=== PATIENT | female | born 1975 | race Caucasian/White ===

== ENCOUNTER 2022-01-25 07:12 | Inpatient (IN) ==
--- NOTE | 2022-01-05 10:15 | PAT Medication Instructions ---
Medication Instructions Date of Service January 05, 2022 Home Medications Medication Instructions Recorded metformin 500 mg tablet 1,000 mg PO QPM #60 tabs 04/09/21 lorazepam 0.5 mg tablet 0.5 mg PO DAILY PRN anxiety #20 12/07/21 tabs Synthroid 300 mcg tablet 300 mcg PO .COMPLEX 90 days #72 01/04/22 (levothyroxine) tabs ferrous sulfate 325 mg (65 mg iron) tablet (Feosol) 65 mg PO QDD tamoxifen 20 mg tablet 20 mg PO QDD calcium carbonate 600 mg-vitamin D3 5 mcg (200 unit) tablet 1 tab PO QDD metformin 500 mg tablet 1,000 mg PO QPM lorazepam 0.5 mg tablet 0.5 mg PO DAILY PRN anxiety Synthroid 300 mcg tablet (levothyroxine) 300 mcg PO .COMPLEX hydrochlorothiazide 25 mg tablet 25 mg PO QDL lisinopril 10 mg tablet 10 mg PO QDL mecobalamin (vitamin B12) 1,000 mcg chewable tablet 1,000 mcg PO QPM phentermine 15 mg capsule 15 mg PO QDL Continue as directed Synthroid 300 mcg tablet (levothyroxine) 300 mcg PO .COMPLEX ASK your prescriber and surgeon tamoxifen 20 mg tablet 20 mg PO QDD DO NOT take the morning of surgery hydrochlorothiazide 25 mg tablet 25 mg PO QDL lisinopril 10 mg tablet 10 mg PO QDL Take morning of surgery With a small sip of water, OTHERWISE NOTHING TO EAT OR DRINK AFTER MIDNIGHT: lorazepam 0.5 mg tablet 0.5 mg PO DAILY PRN anxiety (if needed) Take evening before surgery ferrous sulfate 325 mg (65 mg iron) tablet (Feosol) 65 mg PO QDD calcium carbonate 600 mg-vitamin D3 5 mcg (200 unit) tablet 1 tab PO QDD metformin 500 mg tablet 1,000 mg PO QPM lorazepam 0.5 mg tablet 0.5 mg PO DAILY PRN anxiety (if needed) mecobalamin (vitamin B12) 1,000 mcg chewable tablet 1,000 mcg PO QPM STOP 5 days before surgery phentermine 15 mg capsule 15 mg PO QDL Other Notes If you have any questions please call us at [phone] or [phone] or [phone] or [phone]
--- NOTE | 2022-01-12 10:50 | Anesthesiology Consultation ---
Date of Service January 12, 2022 Assessment & Plan (1) Encounter for pre-operative examination: - COVID screening: Per assessment on 01/12: No known COVID-19 positive contacts or current COVID-19 related symptoms. Travel screen negative. Patient vaccinated. At surgeon discretion if preop Covid testing being done. - Check test, BSG AM DOS - LUE limb restriction: s/p mastectomy - Hx motion sickness: Per pt, no personal hx of PONV but has had scope patch used in the past/hx of significant motion sickness- pt would like scope patch again for upcoming surgery. Scope patch ordered for AM DOS. - Hx difficult intubation: Hysteroscopy, D&C (07/13/19): Unable to visualize VC with glidescope unsuccessful > LMA igel 4 placed. Per post-op anesthesia progress note, "I called the patient to address her concerns during her D&C. The patient stated having a mild sore throat post- operatively on the day of the procedure. The patient stated that on post-op day 1, the patient had more of a sore throat and swollen glands around her neck. She stated having a low grade fever, and she noted bruising along her R mandible. She stated that the bruising on the mandible progressed to the side of her neck. She stated having no issues with her breathing or swallowing, and she stated her sore throat improved, and she was not febrile anymore. I spoke to her and told her that we attempted to intubate her but instead used a LMA. The sore throat and bruising could have been attributed to the induction/intubation process. I told her that she needed to contact an anesthesia provider if her symptoms worsened or did not subside. The patient was very understanding and appreciative of my phone call." Patient very anxious about upcoming surgery d/t issues with intubation/bruising in the past - Patient acceptable risk for surgery pending preop labs (being done at [facility]). Chart Review Chart Review: Patient seen in Pre Admission Testing Teaching & Discussion Pre-Anesthesia Teaching/Discussion Notes: Instructed NPO after midnight before surgery,except medications with 15 cc of water. Medication instructions provided according to the PAT guidelines. History Surgery Operation Date: 01/25/22 09:35 Proposed Procedures p Robotic Cystoscopy, Laparoscopic Removal of The Uterus and Both Fallopian Tubes, Removal of Both Ovaries - Eden Ruiz MD Height/Weight Height: 5 ft 3 in Weight: 130.6 kg Allergies Allergy/AdvReac Type Severity Reaction Status Date / Time clavulanic acid Allergy Mild hives Verified 01/12/22 08:54 [From Augmentin] Medications Home Medications Medication Instructions Recorded Confirmed Last Taken ferrous sulfate 325 mg (65 mg 65 mg PO QDD 05/07/19 01/12/22 07/12/19 20:30 iron) tablet (Feosol) tamoxifen 20 mg tablet 20 mg PO QDD 09/07/19 01/12/22 Unknown calcium carbonate 600 mg-vitamin 1 tab PO QDD 03/09/21 01/12/22 Unknown D3 5 mcg (200 unit) tablet metformin 500 mg tablet 1,000 mg PO QPM #60 tabs 04/09/21 01/12/22 Unknown lorazepam 0.5 mg tablet 0.5 mg PO DAILY PRN anxiety #20 12/07/21 01/12/22 Unknown tabs Synthroid 300 mcg tablet 300 mcg PO .COMPLEX 90 days #72 01/04/22 01/12/22 Unknown (levothyroxine) tabs hydrochlorothiazide 25 mg tablet 25 mg PO QDL 01/04/22 01/12/22 Unknown lisinopril 10 mg tablet 10 mg PO QDL 01/04/22 01/12/22 Unknown mecobalamin (vitamin B12) 1,000 1,000 mcg PO QPM 01/04/22 01/12/22 Unknown mcg chewable tablet phentermine 15 mg capsule 15 mg PO QDL 01/04/22 01/12/22 Unknown Past Medical History Medical History Anxiety situational Cervical dysplasia Hypertension Hypothyroidism Lobular carcinoma in situ (LCIS) of left breast Dx 2018 s/p surgery/xrt Morbid obesity Prediabetes On Metformin (per pt, Metformin more so for weight loss) Exercise / Class Metabolic Activity II 4-5 Yardwork/Stairs/Walk up hill (one FS (no CP, no SOB)) Past Family History Family History Mother Hypertension Father Diabetes Cancer Son No problems noted. Grandmother (Paternal) Breast cancer age 84 Grandfather (Paternal) , age 80's Prostate cancer Lung disease Grandfather Myocardial infarction Other Nephrolithiasis No family history of adverse response to anesthesia Denies family history of Ovarian cancer Colorectal cancer Past Surgical History Surgical History Difficult airway for intubation Hysteroscopy, D&C (07/13/19): Unable to visualize VC with glidescope unsuccessful > LMA igel 4 placed. Per post-op anesthesia progress note, "I called the patient to address her concerns during her D&C. The patient stated having a mild sore throat post- operatively on the day of the procedure. The patient stated that on post-op day 1, the patient had more of a sore throat and swollen glands around her neck. She stated having a low grade fever, and she noted bruising along her R mandible. She stated that the bruising on the mandible progressed to the side of her neck. She stated having no issues with her breathing or swallowing, and she stated her sore throat improved, and she was not febrile anymore. I spoke to her and told her that we attempted to intubate her but instead used a LMA. The sore throat and bruising could have been attributed to the induction/intubation process. I told her that she needed to contact an anesthesia provider if her symptoms worsened or did not subside. The patient was very understanding and appreciative of my phone call." History of breast biopsy 2019 (left)- malignant History of partial mastectomy of left breast Hx of dilation and curettage S/P LEEP 2005 S/P tonsillectomy age Past Anesthesia History Difficult Airway (see PMHX) and No Family Hx of Anesthesia Complications History of PONV No Hx of PONV and Hx of Motion Sickness Social History Smoking Status: Never smoker Do You Dip or Chew Tobacco: No Hx Alcohol Use: No Hx Substance Use: No substance use type: does not use Review of Systems Patient denies chest pain, shortness of breath, dyspnea on exertion, fever, chills, cough, wheezing, palpitations. Physical Exam Vital Signs VITALS BP 138/86 P 105 TEMP 98.3 SP02 98%RA RESP 18 PHYSICAL Full cervical extension range of motion. Full TMJ range of motion. TMD 3 finger breaths Mallampati Score 4 Dentition: missing molars, + crown Lungs: clear throughout to auscultation Cardiac: regular rate and rhythm, no murmurs noted Spine: normal Extremities: no edema Lab Results Anesthesia Preop Results Results Anesthesia Widget: TSH 7.64 mIU/L H 12/31/21 Blood Type O Positive 01/12/22 Antibody Screen NEGATIVE 01/12/22 Testing Laboratory Results 12/31/21 TSH 7.64 11/09/21 FREE T4 1.5 Electrocardiogram Date: 01/12/22 NSR at 96bpm. Prolonged QT. No significant change compared to 02/15/2019 per backend python developer comparison. COVID-19 Risk Screen Screening Information COVID-19 Screen Date: 01/12/22 Exposure 21 Days Family/Household +COVID Last 21 Days: No Exposure 10 Days Any COVID Exposure Last 10 Days: No Symptoms Last 10 Days Experienced COVID Sx Last 10 Days: No + COVID 0-90 Days COVID + in Last 0-90 Days: No
[~2022-01-25 07:12] MED LIST: LACTATED RINGER'S 1,000 ML IV SCH; LR 15ML/HR IV SCH; MIDAZOLAM HCL 1 MG/ML 2ML VIAL ONE; fentaNYL citrate 100 MCG/2 ML VIAL ONE
[2022-01-25] MEDS ORDERED: KETOROLAC 30 MG/ML VIAL ONE (07:53)
[2022-01-25] MEDS ORDERED: GLYCOPYRROLATE 0.2 MG/ML VIAL ONE (07:53)
[2022-01-25] MEDS ORDERED: LARYING-O-JET KIT (LTA) ONE (07:53)
[2022-01-25] MEDS ORDERED: ONDANSETRON INJ 2 MG/ML 2 ML VIAL ONE (07:53)
[2022-01-25] MEDS ORDERED: SUCCINYLCHOLINE CHLORIDE 20 MG/ML 10 ML VIAL IV ONE (07:53)
[2022-01-25] MEDS ORDERED: PROPOFOL IV EMULSION 10 MG/ML 20 ML VIAL IV ONE (07:53)
[2022-01-25] MEDS ORDERED: LIDOCAINE 2% MPF LOCAL 5 ML VIAL INFIL ONE (07:53)
[2022-01-25] MEDS ORDERED: ROCURONIUM BROMIDE 10 MG/ML 5 ML VIAL IV ONE ×6 (07:53→11:31)
[2022-01-25] MEDS ORDERED: NEOSTIGMINE METHYLSULFATE 1 MG/ML 10ML VIAL ONE (07:53)
[2022-01-25] MEDS ORDERED: DEXAMETHASONE SOD INJ 4 MG/ML VIAL ONE (07:53)
[2022-01-25] MEDS ORDERED: SCOPOLAMINE 1 MG TDSY TD ONE (08:06)
[2022-01-25] MEDS ORDERED: fentaNYL citrate 100 MCG/2 ML VIAL IV PRN (08:10)
[2022-01-25] MEDS ORDERED: PHENYLEPHRINE 100MCG/ML 5ML SYR IV PRN (08:10)
[2022-01-25] MEDS ORDERED: ATROPINE SULFATE 0.1 MG/ML 10ML SYR IV PRN (08:10)
[2022-01-25] MEDS ORDERED: MEPERIDINE HCL 25 MG/ML CARP/VIAL IV PRN (08:10)
[2022-01-25] MEDS ORDERED: ONDANSETRON INJ 2 MG/ML 2 ML VIAL IV PRN ×2 (08:10→14:32)
[2022-01-25] MEDS ORDERED: LABETALOL HCL IV 5 MG/ML 20ML IV PRN (08:10)
[2022-01-25] MEDS ORDERED: ePHEDrine sulfate 50 MG/ML AMP IV PRN (08:10)
[2022-01-25] MEDS ORDERED: HYDROmorphone INJ 1 MG/ML SYRINGE IV PRN (08:10)
[2022-01-25] MEDS ORDERED: SUGAMMADEX SODIUM 200 MG/2 ML VIAL IV ONE (08:39)
--- NOTE | 2022-01-25 08:40 | History & Physical Bridge Note ---
Date of Service January 25, 2022 History & Physical Bridge Note I have examined the patient, reviewed the History & Physical and in the interval since the performance of the History & Physical I have noted the following changes of clinical significance: no changes noted
[2022-01-25] MEDS ORDERED: fentaNYL citrate 100 MCG/2 ML VIAL ONE (09:31)
[2022-01-25] MEDS ORDERED: ePHEDrine sulfate 50 MG/ML SYR ONE (10:10)
[2022-01-25] MEDS ORDERED: SCOPOLAMINE 1 MG TDSY TD SCH (11:30)
[2022-01-25 12:43] LABS: Hematocrit (blood only) 31.4 % (34.1-44.9); Hemoglobin 10.8 g/dl (12.0-16.0)
[2022-01-25] MEDS ORDERED: ARISTA ABSORBABLE HEMOSTAT 3GM TOP ONE (12:49)
[2022-01-25] MEDS ORDERED: HYDROmorphone INJ 2 MG/ML SYR/VIAL ONE (12:58)
[2022-01-25] MEDS ORDERED: METHYLENE BLUE 0.5% 10 ML VIAL ONE (13:21)
--- NOTE | 2022-01-25 13:45 | Operative Report ---
PG Post Operative Report Pre & Post Diagnosis Operation Date: 01/25/22 08:50 Pre-Op Diagnosis: Uterine Fibroid, ER positive breast cancer, morbid obesity Post-Op Diagnosis: Uterine Fibroid, ER positive breast cancer, morbid obesity, severe endometriosis, adhesions I identified the patient and participated in the time-out.: Yes Procedure Operation Date: 01/25/22 08:50 Actual Procedures Robotic-Assisted Converted to Open Supracervical Hysterectomy, Lysis of Adhesions, Left salpingectomy, Oversew of mesenteric abrasion (Dr. Al), Cystoscopy(Not Applicable) - Eden Ruiz MD Surgeon Eden Ruiz MD Welder Fitter Arc Kaitlin Estimated Blood Loss 400 Findings Consistent with Post-Op Diagnosis Specimens Uterus with large fibroid, Left fallopian tube. Drains Mercedes Anesthesia Type General Complications Right forearm methylene blue extravasation Disposition Accompanied Patient To Recovery: Yes Disposition: Recovery Room Description of Procedure The patient was placed on the table in lithotomy position and prepped/draped in standard sterile fashion. A hard time out was taken prior to proceeding. The mercedes was placed without complication. Attempt was made to place a V-Care manipulator, however due to an anterior displacement of the cervix and a long/narrow vaginal canal, this was difficult. The attempt was quickly abandoned in favor of using a sponge stick until dissection and mobilization of the uterus could make later placement of the V-Care easier, before the portion of the procedure where a colpotomy cup would be needed. Open entry was made at the umbilicus to place a GelPoint Mini. A 3-cm incision superior to the umbilicus was created and a hemostat was used to bluntly dissect to the fascia which was sharply entered using a Metzenbaum scissor, then the opening was explored by the surgeon's fingers. Exploration revealed significant adherent omental tissue creating a "pocket" beneath the dissected area which was not easy to dissect through. Therefore, the optical trocar and 5mm camera were used to sharply pass through the omental adhesions while watching the tip pass into the abdominal cavity. This opening was then used to place the GelPoint. The abdomen was insufflated, and the patient was placed in Trendelenburg. While in steepest Trendelenburg, the patient began to slide cephalad, despite the use of bariatric pads on the bed specifically to prevent this. She was returned to flat position, and several assistants were obtained to reposition her back to the appropriate location on the bed, to check all securing bands, and to loosen and re-attach all patient securing belts, to ensure she was not pinched or stressed in any way by this repositioning. She was then slowly placed back into Trendelenberg until she showed signs of beginning to slide at 28 degrees slope, and was then returned to 26 degrees where she stayed stable. Belts and padding were again re-checked for patient comfort. Yamilet Abdullahi CRNA was asked to roxana the patient's position and to notify me if she began to "creep" during the case, but from that point forward the patient remained well positioned. Under direct visualization, right and left lower quadrant ports were placed. The camera was moved to the LLQ port to view the umbilical entry and ensure it was clear and free of injury, which it was. Survey of the pelvic organs revealed a grossly enlarged fibroid uterus, as expected. The upper abdomen was normal other than significant adiposity, but the abdominal and pelvic sidewalls showed evidence of endometriotic implants (photographs taken for patient chart). The ovaries and tubes were adherent beneath the uterus, with adhesions to the sigmoid colon and mesentery as well. The robot was docked and surgery then proceeded. Ureters were sought but unable to be identified at this point due to fixation of the bowels to the posterior aspect of the abdomino-pelvic cavity by endometriosis. The adhesions holding the sigmoid colon over the left IP ligament were released and the bowel gently mobilized, but the sigmoid was unable to be moved away from the ovary at all. In fact, gentle attempts to loosen the ovary from the sidewall resulted in spillage of chocolate syrup-type material c/w endometriosis pockets between the ovary and bowel. This was suctioned and irrigated. Dr. Quiroz was asked to visit the OR and render his opinion whether there was going to be ability to create a plane between the left ovary and the sigmoid, as the two structures appeared almost melted together, and I questioned whether the endometriosis surrounding that ovary may actually have invaded the bowel wall, thus requiring resection of bowel were I to attempt to remove the ovary. He sat to the console and did briefly explore the area where the ovary and sigmoid met. His opinion at that time was that resection might be possible, but we agreed it should not be attempted until after the uterus was removed, as a secondary procedure, to allow control of bleeding or bowel issues that may well occur during the attempt. He then left the OR. Cautery was used to dissect the left fallopian tube free from its fimbriated end to the cornua. This tube was retrieved via an personal care assistant port. The left round ligament was ligated and divided, allowing entry to the retroperitoneal space, which then allowed access to ligate and divide the utero-ovarian, and to begin to create the bladder flap by opening the anterior leaflet of the broad ligament distally. To the Right side, the round ligament was severely distorted by the large anterior fibroid, and this was ligated and divided first to release the majority of the fixation of the uterus. Once this was opened, it was possible to begin t he bladder flap from this side as well. Unfortunately the R ovary and tube were both tightly trapped beneath the lateral aspect of the uterus and largest fibroid, and surrounded by endometriotic material as well as grossly enlarged blood vessels c/w recruitment by the large fibroid, and resting directly atop a loop of bowel as well. The fallopian tube was ligated at the cornu and cut free of the uterus at that point, but remained firmly adherent to the ovary, and its fimbriated end was buried beneath the posterior aspect of the uterus. Dissection proceeded very slowly with as much sharp/cold approach as possible, and with suction-irrigation provided via the personal care assistant port from above, until the utero-ovarian could safely be ligated and divided. The dissection was then carried distal towards the cervix as far as safely possible. At that point, attempt was made to place the V-Care from below, by Dr. Madrigal who was then available and assisting. She was unable to place it. During a ttempts to manipulate the uterus from above and bring the cervix down into her view, bleeding was noted to begin briskly from the left side very low, near where the anticipated site of colpotomy would be, and this was believed to be the uterine artery. Unfortunately, attempts to stop the bleeding were very limited, because without a colpotomy cup to elevate the area, it was not safe to utilize cautery in that area. I personally re-scrubbed and then quickly placed a V-Care successfully, then sat back to the console to attempt to cauterize the vessel. Despite several attempts, the bleeding that had arisen from the left side of the cervico-vaginal junction was not easily controlled. A decision was made that conversion to open procedure was in the best interests of the patient. The robot was undocked, the trocars removed, and the patient was positioned flat. Of note I asked for a stat H&H, which I was later informed had required an EJ access to be placed per anesthesia, due to difficulty obtaining any venous access on this patient. A Pfannensteil incision was made and carried to the fascia sharply. The fascia was incised and elevated, dissected bluntly off the rectus muscles, and the rectus were divided bluntly in the midline. Entry to the peritoneum was made bluntly. A self-retaining retractor was placed, and the uterus was grasped and elevated with a Andreas clamp. Because the uterus was large enough to essentially block the view of the pedicles below, a decision was made to begin with a fundectomy. However, it soon became evident that the simpler approach would be a myomectomy of the dominant anterior fibroid, since the incision could be made right on top and the fibroid shelled-out. Once the fibroid was removed, the remaining uterus was re-grasped and manipulated to allow placement of Zeppelin clamps on each uterine pedicle. These were suture-ligated. An additional bleeding vessel most consistent with a branch of the uterine was identified and suture-ligated on the left. With hemostasis achieved, Bovie was used to amputate the uterus at the level of the mid-cervix. The stump was then oversewn with [id number] vicryl pop-offs. Gentle exploration of the pelvis showed a shallow laceration to the mesentery alongside the sigmoid. It is unclear when this occurred, but based on its position and size, I suspect the tip of the superior blade of the self-retaining retractor was the cause. Dr. Al (who was then in tube conversion technician for general surgery) entered the OR at my request and examined this, and placed a few interrupted silk sutures over the area, as well as a suture on the sigmoid itself where the serosa was abraded right alongside this. We also asked him to examine both ovaries which remained in-situ and viable, but densely adherent to both the bowel and the pelvic sidewalls. Drs. Al, Kaitlin and myself considered the likelihood of bowel injury and possible ostomy, as well as the need to remain on Tamoxifen and the impact of this on her overall health (side effects, breast cancer, endometriosis) as we decided whether to attempt bilateral oophorectomy with R salpingectomy. It was felt that the likelihood of bowel injury and possible bowel resection was very high if we attempted to remove any of these structures, and leaving the ovaries and remaining tube in-situ was thus what I decided. Irrigation was performed, good hemostasis was seen with no active bleeding. Min was applied to the cervical stump and surrounding structures, and gentle pressure held with a lap sponge for 1 minute. Excellent hemostasis was apparent on a final inspection of the pelvis. A sponge count was instituted, and closure of the abdomen proceeded. Rectus were reapproximated with interrupted vicryl, the fascia was closed with looped 0-PDS, subcutaneous tissue was irrigated and then the space was closed with chromic, and the skin was closed with margie. A dressing was applied in sterile fashion. UR-6 vicryl was used at the umbilical fascia and monocryl was used at all laparoscopic sites. Cystoscopy was performed after administration of methylene blue dye, and showed an intact bladder dome free of injury and a good strong jet of blue urine from both ureteral orifices. The bladder was then drained. A fresh mercedes was placed. The patient's father was notified by phone of the above events from PACU, where the patient was transferred in good condition. On transfer to PACU, it was seen that the patient's R forearm was dotted with patches of blue color c/w methylene blue. This only occurred distal to the blood pressure cuff, which was on the same arm as her IV due to a restricted L limb after breast cancer with node dissection on the left side. The IV itself had not infiltrated and there was no "pool" of methylene blue to remove; rather, the dye seemed to have extravasated in patches from various veins whenever the blood pressure cuff had gone off. The blood pressure cuff was removed, the IV was removed, and the limb was elevated and warm compresses applied at my direction as this agent is a vesicant. Yamilet Abdullahi and Rikki Quijano are both aware and observing this with me; I remain in PACU as the patient is recovering, to type this note, and to observe her as this extravasation and her obstructive sleep apnea remain concerns. Approximately 20min after the above events, I am told her E-J access appears to have begun failing as well, and IV team will now be called to obtain new IV access. The patient will remain overnight for care in the hospital and was made aware of all of the above in PACU, and will have all questions answered on an ongoing basis during her hospitalization. I attest to the content of the Intraoperative Record and any orders documented therein. Any exceptions are noted below.
[2022-01-25] MEDS ORDERED: HYDROmorphone PCA 30 MG/30 ML IV PRN (14:32)
[2022-01-25] MEDS ORDERED: bisacodyL 10 MG SUPP PR PRN (14:32)
[2022-01-25] MEDS ORDERED: MAGNESIUM HYDROXIDE SUSP 30 ML UDC PO PRN (14:32)
[2022-01-25] MEDS ORDERED: NALOXONE HCL 0.4 MG/1 ML VIAL/CARP IV PRN (14:32)
[2022-01-25] MEDS ORDERED: METOPROLOL TARTRATE 1 MG/ML VIAL IV STA ×2 (14:37→17:28)
[2022-01-25] MEDS ORDERED: SODIUM CHLORIDE 0.9% 1000ML 1,000 ML IV SCH (14:45)
--- NOTE | 2022-01-25 15:27 | Anesthesiology Progress Note ---
Date of Service January 25, 2022 Anesthesia Post Procedure Vital Signs Vital Signs: Temp Pulse Pulse Pulse Resp BP BP 01/25/22 15:20 67 18 120/61 01/25/22 15:10 88 14 107/67 01/25/22 15:00 36.2 C L 104 H 14 128/64 01/25/22 14:20 126 H 22 106/83 01/25/22 14:50 92 H 22 117/67 01/25/22 14:40 125 H 21 149/93 H 01/25/22 14:44 121 H 149/93 H 01/25/22 14:30 116 H 20 131/102 H 01/25/22 14:10 131 H 26 H 111/84 01/25/22 14:00 121 H 22 104/71 01/25/22 13:50 36.1 C L 121 H 34 H 104/84 01/25/22 07:32 36.6 C 100 H 20 BP Pulse Ox O2 Del Method O2 Flow Rate 01/25/22 15:20 97 Nasal Cannula 2 01/25/22 15:10 99 Nasal Cannula 3 01/25/22 15:00 100 Nasal Cannula 3 01/25/22 14:20 98 Oxymask 5 01/25/22 14:50 98 Oxymask 5 01/25/22 14:40 98 Oxymask 5 01/25/22 14:44 01/25/22 14:30 98 Oxymask 5 01/25/22 14:10 99 Oxymask 5 01/25/22 14:00 100 Oxymask 5 01/25/22 13:50 100 Oxymask 5 01/25/22 07:32 158/97 H 99 Room Air Pain Intensity Abdomen: Pain Intensity: 3 Transfer of Care Handoff Completed per policy Notes Mental Status: alert / awake / arousable Patient Amnestic to Procedure: Yes Nausea / Vomiting: adequately controlled Pain: adequately controlled Airway Patency, RR, SpO2: stable & adequate BP & HR: stable & adequate Hydration State: stable & adequate Anesthetic Complications: no major complications apparent and Pt Satisfied with anesthetic care Notes: The patient is awake and her vital signs are stable. She was converted to an open procedure from a robotic procedure. A right EJ peripheral IV was placed by Dr. Coffey using ultrasound to obtain an H/H as well as type and screen the patient in the OR. Her hemoglobin was found to be 10.8. Upon arrival to PACU, her right forearm skin was noted to have multiple blue splotches. There was no swelling around the spots or around the IV site. Some residual methylene blue was noted in the IV tubing. The blood pressure cuff was above the IV on the right arm due to the patient's history of left breast cancer. The blue splotches likely occurred when the blood pressure cuff went up during infusion of the methylene blue. The IV did not appear to be infiltrated, however it was removed out of caution. A warm pack was placed on the arm and it was elevated. The right EJ IV became infiltrated in the PACU and was removed. A new right upper extremity IV was placed in the PACU. The patient will go to the floor for overnight monitoring.
[2022-01-25] MEDS: NITROGLYCERIN 2% OINTMENT 30GM TUBE EXT SCH (17:17)
[2022-01-25] MEDS ORDERED: METOPROLOL TARTRATE 1 MG/ML VIAL IV ONE (17:27)
[2022-01-25] MEDS: CHECK SCOPOLAMINE PATCH PLACEMENT SCH (18:03)
--- NOTE | 2022-01-25 20:32 | Communication Note ---
Date of Service: January 25, 2022 Time >30min spent in room with patient to assess comfort, assess RUE (blue is slowly fading to supervisor wet end color and no longer c/o burning sensation at the skin), discuss surgical case, and answer any questions again now that Lorraine is more awake. During this visit, PRINT SHOP ASSISTANT pump was set up by RN x2 while I was in the room, and patient was given the first dose using her PRINT SHOP ASSISTANT button to ensure the pump was working correctly. LLE has the BP cuff on, RLE has the SCD on and working. Patient wearing nasal cannula with CO2 detector for PRINT SHOP ASSISTANT pump. She is comfo rtable and sleepy but able to remain awake and hold a conversation, then drifts to sleep when not chatting. Her O2 saturation is holding stable in the mid 90s on NC02 2L. Plan discussed to remain inpatient tonight with mercedes, PRINT SHOP ASSISTANT, and to just rest. Tomorrow AM we will do a trial of void, regular diet, begin to ambulate. She wants to go home tomorrow if possible. Discussed while this is possible, would keep in mind she may need to remain a second night for additional pain management and to ensure she meets milestones with ability to eat/drink, void/pass gas, and that she's able to get around her home safely. Of note, the patient's Aunt last week and a is being held tomorrow which is also affecting her father (who is her support person, and who is caring for Lorraine's child at home tonight) so she is feeling not just pain after surgery but also stress on behalf of her father and family, as well as grief. Empathy provided for what has been a very difficult day and what will be a longer and harder recovery than she was hoping.
[2022-01-25] MEDS: LACTATED RINGER'S 1,000 ML IV SCH (21:20)
--- NOTE | 2022-01-26 00:08 | Anesthesiology Progress Note ---
Date of Service January 26, 2022 Assessment & Plan (1) Abnormal uterine bleeding (AUB): Plan Agree with holding off on topical nitroglycerin at this time given systolics in the low 100s. Can consider in the a.m. if needed. Admission and Anticipated Discharge Date Admission Date: January 25, 2022 Subjective Asked by nursing to evaluate need for topical nitroglycerin given systolic blood pressures in the low 100s. Patient's denies pain in her right arm (site of methylene blue extravasation) comfortable with postop pain control. Physical Exam Vital Signs: Last Vital Signs Temp 36.4 C L 01/25/22 21:01 Pulse 107 H 01/25/22 21:01 Resp 16 01/25/22 21:01 BP 103/59 L 01/25/22 21:01 Pulse Ox 100 01/25/22 21: O2 Del Method 01/25/22 21: O2 Flow Rate 2 01/25/22 18:40 Physical Exam: Right upper extremity with multiple sites of methylene blue noted. No apparent ischemia observed. No significant tenderness to deep palpation. 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 Stop: 02/08/22 14:31 Last Admin: 01/25/22 19:39 Dose: 30 mg Documented By: ANGEL Co-signed By: SMRachelle Lactated Ringer's (Lr) 1,000 mls @ 15 mls/hr IV .Q24H [facility] Stop: 01/26/22 05:59 Last Infusion: 01/25/22 08:54 Dose: 0 mls/hr Documented By: Admin: 01/25/22 07:50 Dose: 15 mls/hr Documented By: TDM Lactated Ringer's (Lr) 1,000 mls @ 125 mls/hr IV .Q8H [facility] Stop: 02/24/22 14:44 Last Admin: 01/25/22 21:20 Dose: 125 mls/hr Documented By: PRATEEK Miscellaneous (Check Scopolamine Patch Placement) 1 each N/A QS MARITZA Stop: 02/24/22 15:59 Last Admin: 01/25/22 18:03 Dose: 1 each Documented By: ROOSEVELT Nitroglycerin (Nitroglycerin 2% Ointment 30gm Tube) 2 inch EXT Q6H [facility] Stop: 02/24/22 16:59 Last Admin: 01/25/22 17:17 Dose: 2 inch Documented By: KIM Scopolamine (Scopolamine 1 Mg Tdsy) 1 mg TD Q72H [facility] Stop: 01/27/22 11:29 Last Admin: 01/25/22 08:12 Dose: 1 mg Documented By: RADHA
[2022-01-26] MEDS: NITROGLYCERIN 2% OINTMENT 30GM TUBE EXT SCH ×2 (00:12→06:26)
[2022-01-26] MEDS: LACTATED RINGER'S 1,000 ML IV SCH (05:20)
[2022-01-26] MEDS: LEVOTHYROXINE SODIUM 150 MCG TABLET PO SCH (06:17)
[2022-01-26] MEDS ORDERED: HYDROmorphone INJ 0.5 MG/0.5 ML SYR IV PRN (07:18)
[2022-01-26 07:56] LABS: BUN Creatinine Ratio 22.8 (10-20); Calcium 7.5 mg/dl (8.5-10.1); Creatinine Clr Calc Pharmacy 93.9 ml/min; Est GFR (African American) 78.4 ml/min; Est GFR (Non-African American) 67.6 ml/min; Potassium 4.3 mmol/L (3.5-5.1)
[2022-01-26] MEDS: CHECK SCOPOLAMINE PATCH PLACEMENT SCH ×3 (08:00→17:35)
--- NOTE | 2022-01-26 08:00 | Gynecologic Progress Note ---
Date of Service January 26, 2022 Assessment & Plan (1) Fibroids: Plan: S/P MARITZA, converted to open procedure yesterday. Goals of recovery today include ambulation, trial of void, regular diet, pain control with oral medication nikki. If these goals are met, patient hoping to go home today. May require another overnight and she is aware this depends on how well today goes. Moving forward, no fibroids remain in the patient (pathology pending but presume based on intraop appearance). Cervix remains, she is aware, and pap smears remain relevant for her in the future. No menses are expected to occur, which was also explained. (2) Morbid obesity: Plan: Pre-existing risk factor for surgical morbidity and for healing complications, as well as for estrogen-related cancers. Continues to be a risk factor for DVT/PE, and patient will mobilize today, as well as having been counseled about the importance of movement and deep breathing to prevent clots and PNA as she recovers. Weight management efforts have been ongoing for Lorraine and continue to be encouraged. (3) Uterine enlargement: Plan: S/P MARITZA (4) Abnormal uterine bleeding (AUB): Plan: S/P MARITZA (5) Hypothyroidism: Plan: Continue home thyroid replacement while inpatient (6) Anxiety: Plan: Can resume prn ativan today if needed; BP last night was a bit low during use of nitroglycerin topical and breathing obstruction is an ongoing concern, as I am certain the patient has RADHA given her breathing pattern while waking from anesthesia. Now that she is more alert, likely safe to offer this PRN. Did also discuss the RADHA with the patient and recommended she should likely be on CPAP at home, which she says she is not currently. (7) Hypertension: Plan: Continue home medications. As above, see discussion of CPAP for RADHA which may also play a role here. (8) Malignant neoplasm of central portion of left breast in female, estrogen receptor positive: Plan: Continue Tamoxifen given retention of ovaries. Unfortunately this is also likely feeding the endometriosis we now know she has, which is the reason why her ovaries were unresectable yesterday. Fortunately Lorraine has had no complaint of pain with this, and we discussed yesterday that this new diagnosis typically presents as menstrual pain and adhesive disease. (9) Endometriosis determined by laparoscopy: Plan: As above, severe with obliteration of the cul-de-sac and essentially fusion of the ovaries and R tube to the pelvic sidewall and bowels. Patient has been using Tamoxifen for risk reduction given her history of hormone-positive breast cancer, which means balancing her choices to use the Tamoxifen against the knowledge that it may be worsening this disease. She has had few to no complaints related to the endo, however, so it is likely best to continue the tamoxifen until menopause as her ovaries must remain in situ. Defer to Onc regarding this choice, and have messaged the heme-onc practice here regarding yesterday's plans and events. Admission and Anticipated Discharge Date Admission Date: January 25, 2022 Subjective Patient seen and examined this morning. Currently denies pain so long as she is resting and not moving. Very frustrated by the nasal cannula / CO2 sensor, the need to elevate the R arm, and the SCD/BP cuffs on her legs. Feels very restricted. However, also voices fear of moving which causes discomfort in her surgical sites. Denies CP/SOB, no N/V. 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 Physical Exam Constitutional: WD/WN, vitals as above + morbidly obese; no acute distress Eyes: PERRL, conjunctivae normal, anicteric sclerae ENMT: Ears: no external ear abnormality Nose: no external nose abnormality Mouth: no lip abnormality Neck: supple, no evidence of ecchymosis. No EJ in place at this point, former R EJ site c/d/i. Respiratory: normal respiratory effort and able to speak in complete sentences; no respiratory distress Nasal O2/PCO2 sensor in place. Cardiovascular: Rate/Rhythm: regular rate and regular rhythm No pedal edema. SCD on R leg, BP cuff on L leg, no evident bruising on either leg. Gastrointestinal (Abdomen): Inspection/Auscultation: + abdominal surgical incision (lap sites c/d/i x3 with surgical glue. Dressing c/d/i over pfannensteil. ) Patient does not wish the dressing to be removed from the laparotomy right now. Aware it should come off today; may attempt to peel in shower when wet, or can remove this afternoon at closer to 24 hour roxana, but needs to be removed today. Aware she will need staple removal in 10 days (anxious about this; reassured). Musculoskeletal: no cyanosis or clubbing, extremities motor strength 5/5 Skin: Blue lazo on RUE fading slightly more this morning. No burning or pain in the skin per patient. No edema, erythema or ecchymoses in this area. IV site (replaced after loss of original IV and EJ; not the same one the methylene was given through, though also in RUE due to limb restrictions) is running well and c/d/i. Small ecchymosis on RUE bicep area, roughly 1" diameter. Neurologic: Alert, appropriately frustrated, also able to smile and laugh at times, coping well with difficult situation. Anxious about the discomfort and recovery ahead. Psychiatric: A+Ox3, euthymic affect Results & Data ([facility]) Vital Signs (Past 12 Hours) Vital Signs Temp Pulse Resp BP Pulse Ox Pulse Ox O2 Del Method 01/26/22 04:00 97.9 F 109 H 18 124/69 100 Room Air 01/26/22 04:00 100 01/26/22 00:30 97.9 F 100 H 14 119/71 100 Room Air 01/26/22 00:30 100 01/25/22 21:01 97.5 F L 107 H 16 103/59 L 100 Room Air 01/25/22 19:45 97.5 F L 110 H 16 94/58 L 100 Room Air 01/25/22 19:45 100 O2 Del Method 01/26/22 04:00 01/26/22 04:00 Room Air 01/26/22 00:30 01/26/22 00:30 Room Air 01/25/22 21:01 01/25/22 19:45 01/25/22 19:45 PG Care Time/CCT Total # of Minutes Spent Total Time Spent with Patient: Total time spent is greater than 50% in coordination of care (as documented) at patient's floor/unit and/or counseling patient: Coding Level of Care Code None Diagnoses Fibroids D21.9 Morbid obesity E66.01 Uterine enlargement N85.2 Abnormal uterine bleeding (AUB) N93.9 Hypothyroidism E03.9 Anxiety F41.9 Hypertension I10 Malignant neoplasm of central portion of left breast in female, estrogen receptor positive C50.112; Z17.0 Endometriosis determined by laparoscopy N80.9
--- NOTE | 2022-01-26 08:00 | Operative Report (OR) ---
DATE OF OPERATION: 01/25/2022. NAME OF OPERATION: Serosal repair of sigmoid colon. STAFF SURGEON: Giovanni Al MD. LEAD SETTER: Dr. Ruiz. ANESTHESIA: General. DESCRIPTION OF PROCEDURE: The patient was in the operating room. She was undergoing robotic/open hy sterectomy and had significant pelvic adhesions and Dr. Ruiz wanted me to come in and examine the b owel where there was some small opening in the mesentery and areas of serosa she wanted me to examine . I was able to close two areas of serosa using just Lembert sutures. There were no enterotomies. There was no evidence of any ischemia or cyanosis. There was actually minimal bleeding. We did plac e a suture in the mesentery next to the colon to close a small space. Things looked relatively stable and I was able to leave. Dr. Stokes and Dr. Madrigal took over and proceeded. Job ID: [id number]
[2022-01-26] MEDS: IBUPROFEN 600 MG TAB PO PRN ×4 (08:22→20:23)
[2022-01-26] MEDS: oxyCODONE/ACETAMINOPHEN 5mg/325mg TAB PO PRN ×4 (08:23→20:24)
[2022-01-26 08:29] LABS: Basophils # (auto) 0.03 K/uL (0-0.2); Basophils % (auto) 0.2 %; Hematocrit (blood only) 31.3 % (34.1-44.9); Hemoglobin 10.5 g/dl (12.0-16.0); Immature Granulocytes # (auto) 0.11 K/uL (0.00-0.02); Immature Granulocytes % (auto) 0.6 %; Lymphocytes # (auto) 1.88 K/uL (1.2-3.4); Lymphocytes % (auto) 10.4 %; Mean Corpuscular Hemoglobin 30.1 pg (25.0-34.0); Mean Corpuscular Hgb Conc 33.5 g/dL (32.0-36.0); Mean Corpuscular Volume 89.7 fL (80.0-100.0); Mean Platelet Volume 11.6 fL (9.4-12.3); Monocytes % (auto) 7.8 %; Neutrophils # (auto) 14.62 K/uL (1.4-6.5); Platelet Count 200 K/uL (130-400); RDW Coefficient of Variation 12.4 % (11.5-14.5); RDW Standard Deviation 40.1 fL (36.4-46.3); Red Blood Count 3.49 M/uL (3.93-5.22); White Blood Count 18.04 K/ul (4.8-10.8)
--- NOTE | 2022-01-26 10:04 | Anesthesiology Progress Note ---
Date of Service January 26, 2022 Anesthesia Post Procedure Vital Signs Vital Signs: Temp Pulse Pulse Pulse Resp BP BP 01/26/22 07:40 36.5 C 110 H 22 135/73 01/26/22 04:00 36.6 C 109 H 18 124/69 01/26/22 04:00 01/26/22 00:30 36.6 C 100 H 14 119/71 01/26/22 00:30 01/25/22 21:01 36.4 C L 107 H 16 103/59 L 01/25/22 19:45 36.4 C L 110 H 16 94/58 L 01/25/22 19:45 01/25/22 18:40 109 H 18 119/62 01/25/22 18:10 36.5 C 94 H 18 105/60 01/25/22 17:40 01/25/22 17:40 36.7 C 94 H 18 92/68 L 01/25/22 17:32 124 H 112/67 01/25/22 17:30 124 H 21 99/72 L 01/25/22 17:20 36.5 C 99 H 23 112/67 01/25/22 16:50 108 H 17 110/64 01/25/22 16:20 101 H 17 107/82 01/25/22 15:50 116 H 16 108/73 01/25/22 15:20 67 18 120/61 01/25/22 15:10 88 14 107/67 01/25/22 15:00 36.2 C L 104 H 14 128/64 01/25/22 14:20 126 H 22 106/83 01/25/22 14:50 92 H 22 117/67 01/25/22 14:40 125 H 21 149/93 H 01/25/22 14:44 121 H 149/93 H 01/25/22 14:30 116 H 20 131/102 H 01/25/22 14:10 131 H 26 H 111/84 01/25/22 14:00 121 H 22 104/71 01/25/22 13:50 36.1 C L 121 H 34 H 104/84 Pulse Ox Pulse Ox O2 Del Method O2 Del Method O2 Flow Rate 01/26/22 07:40 99 Room Air 01/26/22 04:00 100 Room Air 01/26/22 04:00 100 Room Air 01/26/22 00:30 100 Room Air 01/26/22 00:30 100 Room Air 01/25/22 21:01 100 Room Air 01/25/22 19:45 100 Room Air 01/25/22 19:45 100 01/25/22 18:40 96 Nasal Cannula 2 01/25/22 18:10 96 Nasal Cannula 2 01/25/22 17:40 Nasal Cannula 2 01/25/22 17:40 98 Nasal Cannula 2 01/25/22 17:32 01/25/22 17:30 97 Nasal Cannula 2 01/25/22 17:20 93 Nasal Cannula 2 01/25/22 16:50 98 Nasal Cannula 2 01/25/22 16:20 98 Nasal Cannula 2 01/25/22 15:50 99 Nasal Cannula 2 01/25/22 15:20 97 Nasal Cannula 2 01/25/22 15:10 99 Nasal Cannula 3 01/25/22 15:00 100 Nasal Cannula 3 01/25/22 14:20 98 Oxymask 5 01/25/22 14:50 98 Oxymask 5 01/25/22 14:40 98 Oxymask 5 01/25/22 14:44 01/25/22 14:30 98 Oxymask 5 01/25/22 14:10 99 Oxymask 5 01/25/22 14:00 100 Oxymask 5 01/25/22 13:50 100 Oxymask 5 Pain Intensity Abdomen: Pain Intensity: 4 Transfer of Care Handoff Completed per policy Notes Mental Status: alert / awake / arousable Patient Amnestic to Procedure: Yes Nausea / Vomiting: adequately controlled Pain: adequately controlled Airway Patency, RR, SpO2: stable & adequate BP & HR: stable & adequate Hydration State: stable & adequate Anesthetic Complications: no major complications apparent, see Notes below and Pt Satisfied with anesthetic care Notes: The patient is POD 1 s/p robotic laparoscopic converted to open hysterectomy. The patient was noted to have small patches of blue on her forearm in PACU likely from her blood pressure cuff cycling while methylene blue was transfusing. Overnight the patient was noted to be hypotensive SBP in the 100s so nitroglycerin cream was held. 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 The patient did not sleep well and feels tired today. She also complains of a dry mouth and felt a little dizzy when she stood up in the bathroom. On exam the patient is sitting in a chair eating breakfast. She appears to be in some discomfort from her surgery site. The patches of blue on her skin appear to have faded slightly. They do not bother her unless they are palpated. The IV site where the methylene blue transfused in does not have any swelling or patches of blue on the skin rather the patches are randomly found on the forearm proximal to the IV site. The patient was counseled that the blue patches will fade with time. She was encouraged to continue elevating her right arm above her heart and to use warm compresses over her forearm. The nitroglycerin cream will be discontinued due to improvement of the skin and concern about worsening hypotension. Her lisinopril and HCTZ will also be held today due to hypotension concerns. The scopolamine patch was removed from her ear due to mouth dryness and dizziness. She does not have any nausea at the moment. The patient did not sleep well last night and feels tired so was encouraged to rest. Dr. Ruiz will determine later today whether the patient may go home today or will stay another night in the hospital.
[2022-01-26] MEDS ORDERED: hydroCHLOROthiazide 25 MG TAB PO SCH (11:30)
[2022-01-26] MEDS ORDERED: lisinopril 10 MG TAB PO SCH (11:30)
[2022-01-26] MEDS ORDERED: TAMOXIFEN CITRATE 10 MG TABLET PO SCH (16:30)
[2022-01-26] MEDS ORDERED: metFORMIN HCL 500 MG TAB PO SCH (16:30)
[2022-01-26] MEDS ORDERED: LACTATED RINGER'S 500 ML IV ONE (17:03)
[2022-01-27] MEDS: CHECK SCOPOLAMINE PATCH PLACEMENT SCH (00:43)
[2022-01-27] MEDS: oxyCODONE/ACETAMINOPHEN 5mg/325mg TAB PO PRN ×3 (02:18→13:35)
[2022-01-27] MEDS: LACTATED RINGER'S 1,000 ML IV SCH ×3 (02:18→11:19)
[2022-01-27] MEDS: LEVOTHYROXINE SODIUM 150 MCG TABLET PO SCH (05:38)
[2022-01-27 06:58] LABS: Hemoglobin 7.3 g/dl (12.0-16.0); Mean Corpuscular Hemoglobin 29.9 pg (25.0-34.0); Mean Corpuscular Hgb Conc 33.2 g/dL (32.0-36.0); Mean Corpuscular Volume 90.2 fL (80.0-100.0); Mean Platelet Volume 11.5 fL (9.4-12.3); Platelet Count 161 K/uL (130-400); RDW Standard Deviation 42.4 fL (36.4-46.3); Red Blood Count 2.44 M/uL (3.93-5.22); White Blood Count 14.72 K/ul (4.8-10.8)
[2022-01-27 06:59] LABS: Basophils # (auto) 0.05 K/uL (0-0.2); Basophils % (auto) 0.3 %; Eosinophils # (auto) 0.06 K/uL (0-0.50); Eosinophils % (auto) 0.4 %; Immature Granulocytes # (auto) 0.05 K/uL (0.00-0.02); Immature Granulocytes % (auto) 0.3 %; Lymphocytes # (auto) 2.67 K/uL (1.2-3.4); Lymphocytes % (auto) 18.1 %; Monocytes # (auto) 0.78 K/uL (0.24-0.82); Monocytes % (auto) 5.3 %; Neutrophils # (auto) 11.11 K/uL (1.4-6.5); Neutrophils % (auto) 75.6 %; RBC Morphology Unremarkable
[2022-01-27 07:04] LABS: Calcium 7.2 mg/dl (8.5-10.1); Creatinine Clr Calc Pharmacy 58.5 ml/min; Est GFR (African American) 44.3 ml/min; Est GFR (Non-African American) 38.2 ml/min; Potassium 4.1 mmol/L (3.5-5.1)
--- NOTE | 2022-01-27 08:00 | Gynecologic Progress Note ---
Date of Service January 27, 2022 Assessment & Plan (1) Endometriosis determined by laparoscopy: (2) Malignant neoplasm of central portion of left breast in female, estrogen receptor positive: Plan: Continue tamoxifen (3) Hypertension: Plan: Managed with home meds. Holding for now due to hypotension with use of topical nitroglycerin yesterday; still not HTN range so will hold today while we jam luate issues with SAAD/Anemia this AM. (4) Morbid obesity: (5) Anxiety: (6) Hypothyroidism: Plan: Continue home med (7) Acute kidney injury: Plan: Labs resulted after I had left patient room this morning and returned to my office across the street. I called the nursing station to discuss additional labs, delay of discharge, and spoke to the patient herself by phone to let her know why I am ordering additional labs and asking her to remain in house while we further evaluate these new concerns. Clinically she looks and feels great today, and is disappointed not to be leaving as expected, but the Hgb and Cr raise concerns that must be answered. Creatinine noted to increase over two days post-op. Concern for ureteral injury is lowered by reassuring cystoscopy, but that cannot rule out a delayed injury such as thermal, so is not 100% guarantee of freedom from surgical misadventure, thus this remains on the differential. However, events of the past 24 hours include significant dehydration and low UOP which has now been corrected via IV fluid resuscitation and patient is showing excellent UOP today. Will trend creatinine with a repeat test around noon today. If improvement, would lean towards diagnosing SAAD due to dehydration or acute insult from perioperative stresses and meds, including anemia which is noted as well. If no improvement, would be more suspicious of injury, and imaging would be considered. (8) Anemia: Plan: Drop in Hgb today is greater than expected for the blood loss of 400cc intraoperative, which is quite certain as it was calculated from the suction machine contents and lap sponges with subtraction of measured irrigants. This could be equilibration + IV bolus dilution, but I am concerned that there may be ongoing blood loss given this delta. Will recheck at noon to evaluate for continued drop vs stability. Tachycardia, mild, noted and relatively similar since the beginning of this admission, thus there is no significant change here from the patient's baseline. Close observation this morning. I communicated to the patient directly about these concerns, see above. Admission and Anticipated Discharge Date Admission Date: January 25, 2022 Subjective Patient seen and examined this morning. She reports no pain while resting, and discomfort when walking. She has not passed gas but feels that it "is coming" and rumbling in her stomach. No nausea and now tolerating PO. Has been ambulatory to the bathroom and back many times. The blue spots on her R arm are significantly faded now and she is happy about that, but notes she's really frustrated about each lab draw because it's so difficult to get blood from her. I removed the NexCare and gauze from her R wrist this morning where it was fairly tight, as it had been 30min since the draw per patient. She is smiling this morning, happy and hopeful to go home with her father after he's in the area for a 1pm outpatient medical visit of his own. She's doing great with pain management, again reporting 0/10, and says she feels she'll be ok with motrin and tylenol at home. Discussed the use of meds on a preventive / routine basis for the first few days, and considering use of percocet if needed especially at bedtime, since her reported pain scores have been so low that I worry she is minimizing, and may undertreat her pain. Discussed the importance of remaining mobile at home, and doing deep breaths / coughs, to prevent DVT and PNA. She discusses remembering this all from her mother's illness and knows well how to do these things and why they are valuable even though they're painful at first. We discussed the events of yesterday wherein she had emesis in the AM, and thereafter did not take PO fluids despite encouragement to do so because she was fearful of recurrence of emesis. We discussed her fear that she would need a prolonged urinary catheter, and she says "I know I did that to myself," referring to the low urine production that resulted in her not being able to void for about 8 hours. She was straight catheterized for 150cc in the evening, which of course is evidence of quite low urine production all day. She was then given fluid boluses IV and maintenance was restarted. This morning we celebrated that she is now voiding spontaneously, and has done so several times and with large volumes, last void being 500cc. Reassured her that it was not "something she did to herself," but rather that it's important to let us know what she's feeling so we can help, whether with IV fluids or nausea meds or a catheter, even if she's worried about what those interventions may entail. Physical Exam Constitutional: WD/WN, vitals as above + morbidly obese; no acute distress Eyes: PERRL, conjunctivae normal, anicteric sclerae ENMT: Ears: no external ear abnormality Nose: no external nose abnormality Mouth: no lip abnormality Neck: supple, no evidence of ecchymosis. Respiratory: normal respiratory effort and able to speak in complete sentences; no respiratory distress Cardiovascular: Rate/Rhythm: regular rate and regular rhythm No pedal alonzo a. Gastrointestinal (Abdomen): Inspection/Auscultation: + abdominal surgical incision (lap sites c/d/i x3 with surgical glue. Dressing removed on pfann. Hoopa) Dressing taken down, incision is c/d/i with margie, looks great, no drainage, no ecchymoses. Musculoskeletal: no cyanosis or clubbing, extremities motor strength 5/5 Skin: Blue lazo on RUE fading much more this morning. Neurologic: Alert, doing really well from mood standpoint today Psychiatric: A+Ox3, euthymic affect Results & Data ([facility]) Vital Signs (Past 12 Hours) Vital Signs Temp Pulse Resp BP Pulse Ox O2 Del Method 01/27/22 05:40 98.1 F 112 H 18 134/84 99 Room Air 01/26/22 23:35 Room Air 01/26/22 23:35 98.2 F 118 H 18 123/52 L 96 Room Air 01/26/22 20:30 98.2 F 106 H 18 101/48 L 95 Room Air PG Care Time/CCT Total # of Minutes Spent Total Time Spent with Patient: Total time spent is greater than 50% in coordination of care (as documented) at patient's floor/unit and/or counseling patient: Coding Level of Care Code None Diagnoses Endometriosis determined by laparoscopy N80.9 Malignant neoplasm of central portion of left breast in female, estrogen receptor positive C50.112; Z17.0 Hypertension I10 Morbid obesity E66.01 Anxiety F41.9 Hypothyroidism E03.9 Acute kidney injury N17.9 Anemia D64.9
[2022-01-27] MEDS: IBUPROFEN 600 MG TAB PO PRN (08:50)
[2022-01-27 09:10] VITALS: O2SAT 98
--- NOTE | 2022-01-27 11:29 | Anesthesiology Progress Note ---
Date of Service January 27, 2022 Anesthesia Post Procedure Vital Signs Vital Signs: Temp Pulse Resp BP Pulse Ox O2 Del Method 01/27/22 07:36 36.8 C 111 H 18 136/62 98 Room Air 01/27/22 05:40 36.7 C 112 H 18 134/84 99 Room Air 01/26/22 23:35 Room Air 01/26/22 23:35 36.8 C 118 H 18 123/52 L 96 Room Air 01/26/22 20:30 36.8 C 106 H 18 101/48 L 95 Room Air 01/26/22 16:15 36.4 C L 110 H 18 101/62 96 Room Air 01/26/22 12:30 37.0 C 123 H 20 116/57 L 96 Room Air Pain Intensity Abdomen: Pain Intensity: 3 Transfer of Care Handoff Completed per policy Notes Mental Status: alert / awake / arousable Patient Amnestic to Procedure: Yes Nausea / Vomiting: adequately controlled Pain: adequately controlled Airway Patency, RR, SpO2: stable & adequate BP & HR: stable & adequate Hydration State: stable & adequate Anesthetic Complications: no major complications apparent, see Notes below and Pt Satisfied with anesthetic care Notes: The patient's blue spots on her right forearm are fading. They do not bother her to palpation. She is feeling better with her surgical incision pain and is anxious to go home. Her hgb dropped and creatinine carlos which Dr. Ruiz is monitoring.
[2022-01-27 12:14] LABS: Hematocrit (blood only) 23.4 % (34.1-44.9); Hemoglobin 7.7 g/dl (12.0-16.0); Mean Corpuscular Hemoglobin 29.5 pg (25.0-34.0); Mean Corpuscular Hgb Conc 32.9 g/dL (32.0-36.0); Mean Corpuscular Volume 89.7 fL (80.0-100.0); Mean Platelet Volume 11.7 fL (9.4-12.3); Platelet Count 163 K/uL (130-400); RDW Standard Deviation 42.5 fL (36.4-46.3); Red Blood Count 2.61 M/uL (3.93-5.22)
[2022-01-27 12:45] LABS: Albumin Globulin Ratio 1.7 (0.9-2); Albumin Level 3.1 gm/dl (3.4-5.0); BUN Creatinine Ratio 22.4 (10-20); Bilirubin,Total 0.4 mg/dl (0.2-1.0); Calcium 7.9 mg/dl (8.5-10.1); Creatinine Clr Calc Pharmacy 75.8 ml/min; Est GFR (African American) 60.6 ml/min; Est GFR (Non-African American) 52.3 ml/min; Globulin 1.8 gm/dl (2.5-4.0); Potassium 4.1 mmol/L (3.5-5.1); Total Protein 4.9 gm/dl (6.0-8.3)
--- NOTE | 2022-01-27 13:21 | Communication Note ---
Date of Service: January 27, 2022 Labs from noontime reviewed along with chart overall, including vitals. Hemoglobin has stabilized from 7.3 to 7.7. While this is a greater delta than was anticipated from the calculated EBL during surgery, it does appear to have stabilized which is reassuring that there is not likely ongoing intra-abdominal bleeding. The creatinine has also improved significantly, but is still not normal. Given a delta of >0.3 from the patient's baseline / normal to the current creatinine, despite its trend in a reassuring direction, I remain concerned that a ureteral injury could have occurred (what if the bump to 1.6 was because of both injury AND prerenal/dehydration?) and I do not want an injury to go undetected. Discussed with CT techs and ordered at their direction a CT urogram (CT Abd Pelv IV con only) and discussed with current on/call MD and the patient's RN. Will likely need new IV site per RN as existing site is failing. This is unfortunately as her limb restrictions and habitus make access difficult; suggest IV team and large bore placement including EJ access if required because contrast injector at CT is likely to challenge a small gauge IV. Choosing alternative imaging, ie retrograde cystogram/urogram, is more invasive and would not be recommended over an IV access replacement at this time in my opinion.
--- NOTE | 2022-01-27 15:14 | CT Scan Report ---
CT UROGRAM OF THE ABDOMEN AND PELVIS WITH IV CONTRAST CLINICAL HISTORY: Elevated creatinine. Recent gynecological surgery. Assess the ureters. COMPARISON STUDY: Pelvic ultrasound dated 10/09/2021. TECHNIQUE: Following the IV administration of 85 cc of Optiray 350, CT urogram of the abdomen and pe lvis is performed from the lung bases to the proximal femora. The examination was performed in the ex piratory phase of enhancement at the request of the referring clinician. Images are reviewed in the a xial, sagittal, and coronal planes. IV contrast was administered without complication. A dose lowerin g technique was utilized adhering to the principles of ALARA. The examination is degraded by large mathew dy habitus, and by streak artifact from the body wall abutting the CT gantry. CT DOSE: 1460.67 mGycm FINDINGS: Lung bases: The heart is normal in size and without pericardial effusion. The lung bases are clear no ting dependent atelectasis. Liver: The contrast-enhanced liver is enlarged, measuring 22.6 cm in length. The liver demonstrates d ecreased attenuation indicating severe steatosis. There is no intrahepatic biliary ductal dilatation. The hepatic veins and portal veins are patent. Gallbladder: Unremarkable. Spleen: Normal in size and attenuation. Pancreas: Unremarkable. Adrenal glands: Unremarkable. Kidneys: The contrast enhanced kidneys are normal in size and without hydronephrosis. The kidneys enh ance and excrete symmetrically. There is no evidence of urothelial lesion involving the renal pelvis bilaterally or along the course of the ureters. No extra-ureteral contrast is identified to suggest u reteral injury. Abdominal vasculature: The abdominal aorta is normal in course and caliber. Bowel: There is mild colonic diverticulosis without CT evidence of acute diverticulitis. No bowel obs truction is seen. [id number] fecal retention is noted throughout the colon. The appendix is no rmal as visualized. Peritoneum: Tiny foci of intraperitoneal free air in the pelvis are nonspecific and likely related t o recent surgery. There is postsurgical changes in the ventral abdominal wall with foci of subcutaneo us gas. A small pocket of fluid in the umbilicus likely presents a seroma. This measures up to 2.7 cm . Midline skin clips are noted in the pelvic pannus. Lymphadenopathy: None. Pelvic viscera: The bladder, uterus, and adnexa are normal as visualized noting bilateral ovarian fol licles. Stranding throughout the pelvis is likely related to recent surgery. Skeletal structures: No lytic or blastic lesions are seen. Sclerotic change is noted in the sacroilia c joints. IMPRESSION: 1. There is no CT evidence of ureteral injury as clinically queried. 2. Infiltration and tiny foci of free air in the pelvis are nonspecific and likely related to recent surgery. 3. Postsurgical change is also noted within the ventral wall of the lower abdomen and pelvis. 4. Hepatomegaly and severe hepatic steatosis. 5. Colonic diverticulosis without CT evidence of acute diverticulitis. 6. Additional findings as above. ACT 112: Negative or not required by law. Electronically signed by: Mikal Faith M.D. 01/27/2022 3:13 PM
--- NOTE | 2022-01-27 15:30 | Communication Note ---
Date of Service: January 27, 2022 Imaging reviewed. No evidence of ureteral injury on CT scan, no fluid collections or significant findings other than normal postop changes. There are findings as noted of unrelated/chronic issues including hepatic steatosis. Given incoming inclement winter weather, rather than asking patient to stay in hospital until I can personally see her after 5pm when I finish clinic, will place D/C order now to allow her to head home. I have asked the nurses and Dr. Kimbrough (motor inspection mechanic at [facility] right now) both to ensure patient receives the message that I am ordering labwork which she is to have done on Tuesday to recheck renal function and anemia, and have added this to her discharge instructions for printing as well.
[2022-01-27 15:46] VITALS: BP 126/74; PULSE 115; TEMP 99
== END 2022-01-27 16:29 | disposition home or self-care (01) | DRG 742 ==
LOC: ASU 07:12 → PACUINP 14:32 → 4E1 17:55